=== PATIENT | male | born 1980 | race Caucasian/White ===

== ENCOUNTER 2017-04-26 07:44 | Inpatient (IN) | payer OTHER ==
[~2017-04-26] VITALS: Ht 177.8 cm; Wt 64.0 kg
[2017-04-26 07:44] VITALS: BP 144/104
[2017-04-26] MEDS ORDERED: DICLOFENAC SODI75 MG PO (08:03)
[2017-04-26 08:31] LABS: HEMATOCRIT 44.8 % (42.0-52.0); HEMOGLOBIN 15.4 gm/dL (14.0-18.0); MANUAL DIFF YES; MCH 30.8 pg (26.0-34.0); MCHC 34.3 g/dL (28.0-37.0); MCV 89.8 fL (80.0-100.0); PLATELET COUNT 215 thou/uL (150-400); RBC 4.99 mil/uL (4.50-6.00); RDW 12.6 % (10.5-14.5); WBC 7.2 thou/uL (4.0-11.0)
[2017-04-26 08:40] LABS: CALCIUM 8.8 mg/dL (8.5-10.1); CREATININE 1.2 mg/dL (0.7-1.3); POTASSIUM 4.2 mmol/L (3.5-5.1)
[2017-04-26 08:44] LABS: ALBUMIN 3.6 g/dL (3.4-5.0); TOTAL BILIRUBIN 1.1 mg/dL (<0.1-1.0); TOTAL PROTEIN 7.3 g/dL (6.4-8.2); URIC ACID* 5.3 mg/dL (2.6-7.2)
[2017-04-26 08:53] LABS: ABSOLUTE NEUTROPHILS 4.8 thou/uL (1.4-8.2); METAMYELOCYTES 1 %; TOTAL CELL COUNT 100
[2017-04-26 10:12] VITALS: BP 120/75
[2017-04-26 10:16] LABS: URINE BILIRUBIN NEGATIVE (Negative); URINE BLOOD TRACE (Negative); URINE COLOR YELLOW; URINE GLUCOSE-RANDOM* NEGATIVE (Negative); URINE KETONES NEGATIVE (Negative); URINE LEUKOCYTES-REFLEX NEGATIVE (Negative); URINE PROTEIN (DIPSTICK) NEGATIVE (Negative); URINE SPECIFIC GRAVITY 1.015 (1.003-1.035); URINE UROBILINOGEN 0.2 E.U./dl (0.2-1.0)
[2017-04-26 10:57] VITALS: BP 133/84
[2017-04-26 17:25] VITALS: BP 140/78
[2017-04-26 20:00] VITALS: BP 153/89
[2017-04-27 04:00] VITALS: BP 113/52
[2017-04-27 10:07] LABS: LYME ANTIBODY SCREEN* <0.91 ISR (0.00-0.90)
[2017-04-27] MEDS ORDERED: PREDNISONE 10 M10 MG PO (17:05)
[2017-04-27] MEDS ORDERED: HYDROCODONE-AP1 EAC6 PO (17:05)
[2017-04-27 18:17] VITALS: BP 143/84
[2017-04-27 18:21] VITALS: BP 143/84
[2017-04-30 10:06] LABS: ANTI-DNA SCREEN <1 IU/mL (0-9); ANTI-RNP <0.2 AI (0.0-0.9)
== END 2017-04-27 18:41 | disposition home or self-care (01) | DRG 547 ==
LOC: ER 07:44 → 3N 09:12 → EROBS 09:12 → 3N 10:30
PROVIDERS: Emergency Medicine
DX: M35.3 Polymyalgia rheumatica (principal); K74.60 Unspecified cirrhosis of liver; R59.1 Generalized enlarged lymph nodes; Z88.8 Allergy status to other drugs, medicaments and biological substances
CPT/HCPCS: 10094

== ENCOUNTER 2017-05-17 18:01 | Emergency (ER) | payer OTHER ==
[~2017-05-17] VITALS: Ht 177.8 cm; Wt 106.6 kg
[~2017-05-17 18:01] MED LIST: DICLOFENAC SODI75 MG PO; HYDROCODONE-AP1 EAC6 PO; PREDNISONE 10 M10 MG PO
[2017-05-17] MEDS ORDERED: NAPROSYN500 MG PO (18:36)
[2017-05-17] MEDS ORDERED: CIPRO500 MG PO (18:36)
[2017-05-17 18:44] LABS: URINE BILIRUBIN NEGATIVE (Negative); URINE BLOOD 1+ (Negative); URINE COLOR YELLOW; URINE GLUCOSE-RANDOM* NEGATIVE (Negative); URINE KETONES NEGATIVE (Negative); URINE NITRITE NEGATIVE (Negative); URINE PROTEIN (DIPSTICK) TRACE (Negative); URINE SPECIFIC GRAVITY >= 1.030 (1.003-1.035); URINE UROBILINOGEN 0.2 E.U./dl (0.2-1.0)
[2017-05-17 18:55] LABS: BACTERIA 1-9 Few /HPF (None Seen); CASTS None Seen /LPF (None Seen); CRYSTALS None Seen /LPF (None Seen); SQUAMOUS 0-3 Few /LPF (0-3); URINE RBC 3-10 Few /HPF (0-2); URINE WBC None Seen /HPF (0-5)
[2017-05-17 19:17] LABS: ABSOLUTE NEUTROPHILS 5.6 thou/uL (1.4-8.2); BASOPHILS 0.5 % (0.0-2.0); EOSINOPHILS 1.5 % (0.0-3.0); HEMATOCRIT 43.8 % (42.0-52.0); LYMPHOCYTES 14.6 % (24.0-44.0); MCH 30.6 pg (26.0-34.0); MCHC 34.4 g/dL (28.0-37.0); MCV 89.1 fL (80.0-100.0); MONOCYTES 10.7 % (1.0-8.0); PLATELET COUNT 215 thou/uL (150-400); POLYS 72.7 % (36.0-66.0); RBC 4.91 mil/uL (4.50-6.00); RDW 12.6 % (10.5-14.5); WBC 7.7 thou/uL (4.0-11.0)
[2017-05-17 19:19] LABS: MANUAL DIFF NO
[2017-05-17 19:25] LABS: CALCIUM 9.1 mg/dL (8.5-10.1); CREATININE 1.4 mg/dL (0.7-1.3); POTASSIUM 4.3 mmol/L (3.5-5.1)
[2017-05-17] MEDS ORDERED: FLOMAX0.4 MG PO (20:05)
[2017-05-17] MEDS ORDERED: NORCO 5-325 TA1 EACH PO (20:28)
== END 2017-05-17 20:50 | disposition home or self-care (01) ==
LOC: ER 18:01
PROVIDERS: Physician Assistant
DX: N20.0 Calculus of kidney (principal); R31.9 Hematuria, unspecified; Z88.6 Allergy status to analgesic agent